=== PATIENT | male | born 1975 | race Caucasian/White ===

== ENCOUNTER 2021-07-29 22:05 | Emergency (ER) | payer BC ==
[2021-07-29 23:04] LABS: #Basophils 0.1 10x3/uL (0.0-0.2); #Eosinphils 0.2 10x3/uL (0.0-0.5); #Monocytes 0.8 10x3/uL (0.0-1.1); #Neutrophils 8.1 10x3/uL (1.5-8.4); %Basophils 0.4 % (0.0-2.0); %Eosinophils 1.5 % (0.0-6.0); %Lymphocytes 17.9 % (18.0-47.0); ALT (SGPT) 77 U/L (8-55); AST (SGOT) 145 U/L (5-34); Albumin 4.5 g/dL (3.5-5.0); Alkaline Phosphatase 105 U/L (40-110); Anion Gap 13 mmol/L (10-20); BUN (Urea Nitrogen) 17 mg/dL (8.9-20.6); Bilirubin, Total 1.6 mg/dL (0.2-1.2); Calc. Creatinine Clearance 0 mL/min (70-130); Calcium 9.7 mg/dL (7.8-10.44); Carbon Dioxide 30 mmol/L (22-29); Chloride 101 mmol/L (98-107); Globulin 2.8 g/dL (2.4-3.5); Glucose 134 mg/dL (70-105); Hemoglobin 15.7 g/dL (13.5-17.5); Lipase 17 U/L (8-78); Mean Corpuscular HGB CONC 35.1 g/dL (32.0-36.0); Mean Corpuscular Hemoglobin 30.2 pg (27.0-33.0); Mean Platelet Volume 8.9 fl (7.4-10.4); Platelet Count 236 10x3/uL (150-450); Potassium 3.6 mmol/L (3.5-5.1); Protein, Total 7.3 g/dL (6.0-8.3); RBC Distribution Width 12.2 % (11.5-14.5); Sodium 140 mmol/L (136-145); White Blood Cell (WBC) Count 11.1 10x3/uL (3.5-10.5)
== END 2021-07-30 01:55 | disposition home or self-care (01) ==
LOC: CSHERS 22:05
DX: K80.20 Calculus of gallbladder without cholecystitis without obstruction (principal); K76.0 Fatty (change of) liver, not elsewhere classified
CPT/HCPCS: 71045; 76705; 80053; 83690; 84484; 85025; 93005